=== PATIENT | male | born 1990 | race American Indian/Alaskan Native ===

== ENCOUNTER 2019-08-26 16:03 | Emergency (ER) | payer SELFPAY ==
--- NOTE | 2019-08-26 16:19 | Event Note ---
ED Screening Note Date of service: 08/26/19 Time: 16:17 ED Screening Note: This is a 29 y.o. M. that presents to the ER with rectal pain and bleeding for several months. Patient states he is self medicating with no improvement of symptoms. This initial assessment/diagnostic orders/clinical plan/treatment(s) is/are subject to change based on patients health status, clinical progression and re- assessment by fellow clinical providers in the ED. Further treatment and workup at subsequent clinical providers discretion. Patient/guardian urged not to elope from the ED as their condition may be serious if not clinically assessed and managed. Initial orders include: Labs
[2019-08-26 17:02] LABS: Hematocrit 43.9 % (35.5-45.6); Hemoglobin 14.6 gm/dl (11.8-15.2); Mean Corpuscular HGB Conc 33 % (32-34); Mean Corpuscular Volume 94 fl (84-94); Platelet Count 147 K/mm3 (140-440); Red Blood Count 4.66 M/mm3 (3.65-5.03); Red Cell Distribution Width 12.8 % (13.2-15.2)
--- NOTE | 2019-08-26 19:12 | Emergency Department Report ---
ED General Adult HPI - General Chief complaint: Rectal Pain Stated complaint: MEDICAL EMERGENCY Time Seen by Provider: 08/26/19 16:16 Source: patient Mode of arrival: Ambulatory Limitations: No Limitations - History of Present Illness Initial comments: Is a 29-year-old male with a history of HIV, hemorrhoids and warts who presents to the ED complaining of rectal pain with swallowing lesions to his rectal area. Patient states he's had pain with and without bowel movement. Patient states he is put some hemorrhoidal cream with no relief. Patient denies blood in the stool. He denies fevers/chills/nausea vomiting or abdominal pain. - Related Data Previous Rx's Medication Instructions Recorded Last Taken Type Hydrocortisone [Anucort-HC SUPPOS] 25 mg RC BID #30 supp.rect 08/26/19 Unknown Rx Imiquimod [Zyclara 3.75%] 1 applicatio TP QHS #2 tube 08/26/19 Unknown Rx Allergies Allergy/AdvReac Type Severity Reaction Status Date / Time No Known Allergies Allergy Unverified 08/26/19 16:14 ED Review of Systems ROS: Stated complaint: MEDICAL EMERGENCY Other details as noted in HPI Comment: All other systems reviewed and negative ED Past Medical Hx - Past Medical History Previous Medical History?: Yes Hx HIV: Yes - Surgical History Past Surgical History?: No - Social History Smoking Status: Never Smoker - Medications Home Medications: Home Medications Medication Instructions Recorded Confirmed Last Taken Type Hydrocortisone [Anucort-HC SUPPOS] 25 mg RC BID #30 supp.rect 08/26/19 Unknown Rx Imiquimod [Zyclara 3.75%] 1 applicatio TP QHS #2 tube 08/26/19 Unknown Rx ED Physical Exam - General Limitations: No Limitations General appearance: alert, in no apparent distress - Head Head exam: Present: atraumatic, normocephalic - Eye Eye exam: Present: normal appearance - ENT ENT exam: Present: mucous membranes moist - Neck Neck exam: Present: normal inspection - Respiratory Respiratory exam: Present: normal lung sounds bilaterally. Absent: respiratory distress - Cardiovascular Cardiovascular Exam: Present: regular rate, normal rhythm. Absent: systolic murmur, diastolic murmur, rubs, gallop - GI/Abdominal GI/Abdominal exam: Present: soft, normal bowel sounds. Absent: distended, tenderness, guarding - Rectal Rectal exam: Present: normal rectal tone, heme (-) stool, hemorrhoids, other (genital warts several ). Absent: fecal impaction - Extremities Exam Extremities exam: Present: normal inspection - Back Exam Back exam: Present: normal inspection - Neurological Exam Neurological exam: Present: alert, oriented X3 - Psychiatric Psychiatric exam: Present: normal affect, normal mood - Skin Skin exam: Present: warm, dry, intact, normal color. Absent: rash ED Course Vital Signs 08/26/19 08/26/19 08/26/19 16:17 19:20 19:50 Temperature 99.1 F Pulse Rate 88 78 Respiratory 20 18 18 Rate Blood Pressure 140/79 Blood Pressure 124/88 [Left] O2 Sat by Pulse 100 100 100 Oximetry ED Medical Decision Making - Lab Data Result diagrams: 08/26/19 16:25 - Medical Decision Making 29-year-old male with a history of rectal warts presents for rectal pain. Discussed findings with the patient. Patient states he is alleviated he has hemorrhoids as well as warts. Patient states that he used to live in [place] and had medical so he was able to have it managed. Patient states that he his insurance is not transferred to [place] Medicaid so he is unable to follow-up. Patient is seeking medication for relief. He denies blood in the stool, Referrals given to patient for [facility]. Discussed follow-up once insurance is active. Vital signs are normal patient is in no acute distress Critical care attestation.: If time is entered above; I have spent that time in minutes in the direct care of this critically ill patient, excluding procedure time. 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 Take all your medications as you've been prescribed. If you have any worsening symptoms or develop new symptoms please return to ED immediately. Prescriptions: Imiquimod [Zyclara 3.75%] 1 applicatio TP QHS #2 tube Hydrocortisone [Anucort-HC SUPPOS] 25 mg RC BID #30 supp.rect Referrals: ANGELO AGEE MD [Referring] - 3-5 Days [facility] [Outside] - 3-5 Days [facility] [Outside] - 3-5 Days Forms: Work/School Release Form(ED) Time of Disposition: 19:36
[2019-08-26 20:06] VITALS: BP 124/88
== END 2019-08-26 19:50 | disposition home or self-care (01) ==
LOC: ED 16:03
DX: A63.0 Anogenital (venereal) warts (principal); K64.9 Unspecified hemorrhoids; Z21 Asymptomatic human immunodeficiency virus [HIV] infection status; Z79.899 Other long term (current) drug therapy
CPT/HCPCS: 36415; 85027

== ENCOUNTER 2019-09-01 13:21 | Emergency (ER) | payer SELFPAY ==
--- NOTE | 2019-09-01 14:06 | Event Note ---
ED Screening Note Date of service: 09/01/19 Time: 14:03 ED Screening Note: Pt complains of rectal pain x 2 months, worsening 1 week states rectal mass +fever and chills at home states pain 10/10 +hematochezia +rectal intercourse This initial assessment/diagnostic orders/clinical plan/treatment(s) is/are subject to change based on patients health status, clinical progression and re- assessment by fellow clinical providers in the ED. Further treatment and workup at subsequent clinical providers discretion. Patient/guardian urged not to elope from the ED as their condition may be serious if not clinically assessed and managed. Initial orders include: labs
[2019-09-01] MEDS ORDERED: MORPHINE 4 MG/1 ML INJ IV ONE (14:09)
[2019-09-01] MEDS ORDERED: ONDANSETRON 4 MG/2 ML INJ IV ONE (14:09)
[2019-09-01 14:45] LABS: Hematocrit 42.8 % (35.5-45.6); Hemoglobin 14.2 gm/dl (11.8-15.2); Mean Corpuscular HGB Conc 33 % (32-34); Mean Corpuscular Volume 93 fl (84-94); Red Blood Count 4.61 M/mm3 (3.65-5.03); Red Cell Distribution Width 12.6 % (13.2-15.2)
[2019-09-01 14:54] LABS: Alanine Aminotransferase 13 units/L (7-56); Albumin 4.2 g/dL (3.9-5); BUN/Creatinine Ratio 7; Blood Urea Nitrogen 6 mg/dL (9-20); Calcium 9.6 mg/dL (8.4-10.2); Hemolysis Index 1
[2019-09-01 15:03] LABS: Bilirubin,Direct < 0.2 mg/dL (0-0.2)
[2019-09-01 15:34] LABS: Platelet Count 159 K/mm3 (140-440)
[2019-09-01] MEDS ORDERED: ONDANSETRON 4 MG/2 ML INJ ONE (16:39)
[2019-09-01] MEDS ORDERED: MORPHINE 4 MG/1 ML INJ ONE (16:40)
--- NOTE | 2019-09-01 18:42 | Emergency Department Report ---
ED Abdominal Pain HPI - General Chief Complaint: Rectal Pain Stated Complaint: RECTAL BLEEDING Time Seen by Provider: 09/01/19 14:03 Source: patient Mode of arrival: Ambulatory Limitations: No Limitations - History of Present Illness Initial Comments: Patient with h/o hemorrhoids and warts, c/o pain in rectum, scant bleeding with bm. Severity scale (0 -10): 6 - Related Data Previous Rx's Medication Instructions Recorded Last Taken Type Hydrocortisone [Anucort-HC SUPPOS] 25 mg RC BID #30 supp.rect 09/01/19 Unknown Rx Imiquimod [Zyclara 3.75%] 1 applicatio TP QHS #2 tube 09/01/19 Unknown Rx Allergies Allergy/AdvReac Type Severity Reaction Status Date / Time No Known Allergies Allergy Unverified 08/26/19 16:14 ED Review of Systems ROS: Stated complaint: RECTAL BLEEDING Other details as noted in HPI Comment: All other systems reviewed and negative Constitutional: denies: chills, fever Eyes: denies: eye pain, eye discharge, vision change Gastrointestinal: denies: abdominal pain, nausea, diarrhea ED Past Medical Hx - Past Medical History Hx HIV: Yes - Surgical History Additional Surgical History: tonsilectomy - Social History Smoking Status: Never Smoker Substance Use Type: None - Medications Home Medications: Home Medications Medication Instructions Recorded Confirmed Last Taken Type Hydrocortisone [Anucort-HC SUPPOS] 25 mg RC BID #30 supp.rect 09/01/19 Unknown Rx Imiquimod [Zyclara 3.75%] 1 applicatio TP QHS #2 tube 09/01/19 Unknown Rx ED Physical Exam - General Limitations: No Limitations General appearance: alert, in no apparent distress - Head Head exam: Present: atraumatic, normocephalic - Eye Eye exam: Present: normal appearance - ENT ENT exam: Present: mucous membranes moist - Neck Neck exam: Present: normal inspection - Respiratory Respiratory exam: Present: normal lung sounds bilaterally. Absent: respiratory distress - Cardiovascular Cardiovascular Exam: Present: regular rate, normal rhythm. Absent: systolic murmur, diastolic murmur, rubs, gallop - GI/Abdominal GI/Abdominal exam: Present: soft, normal bowel sounds - Rectal Rectal exam: Present: other (obvious anal warts) ED Course Vital Signs 09/01/19 09/01/19 14:01 19:48 Temperature 99.8 F H 98.6 F Pulse Rate 110 H 92 H Respiratory 18 18 Rate Blood Pressure 141/85 Blood Pressure 118/72 [Left] O2 Sat by Pulse 97 99 Oximetry ED Medical Decision Making - Lab Data Result diagrams: 09/01/19 14:17 09/01/19 14:17 Critical care attestation.: If time is entered above; I have spent that time in minutes in the direct care of this critically ill patient, excluding procedure time. 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
[2019-09-01] MEDS ORDERED: LIDOCAINE VISCOUS 2% 15 ML ORAL LIQD ONE (18:46)
[2019-09-01] MEDS: LIDOCAINE 2% JELLY 30 ML TP ONE ×2 (18:49→19:39)
[2019-09-01] MEDS ORDERED: LIDOCAINE VISCOUS 2% 15 ML ORAL LIQD PO ONE (19:11)
[2019-09-01 19:49] VITALS: BP 118/72
== END 2019-09-01 19:49 | disposition home or self-care (01) ==
LOC: ED 13:21
DX: A63.0 Anogenital (venereal) warts (principal); K64.9 Unspecified hemorrhoids; Z90.89 Acquired absence of other organs
CPT/HCPCS: 36415; 80048; 80076; 82140; 85027; J2270; J2405; 96374; 96375